=== PATIENT | female | born 1995 | race Two or more races ===

== ENCOUNTER → 2019-11-28 | Outpatient (CLI) | payer OTHER ==
--- NOTE | 2019-11-28 16:58 | RADIOLOGY REPORT (SQ) ---
EXAM DESCRIPTION: FOOT LEFT COMPLETE COMPLETED DATE/TIME: 11/28/2019 4:49 pm REASON FOR STUDY: OTHER SPECIFIED JOINT DISORDERS, UNSPECIFIED ANKLE AND FOOT M25.879 OTHER SPECIFI ED JOINT DISORDERS, UNSPECIFIED ANKLE A COMPARISON: None. NUMBER OF VIEWS: Three views. TECHNIQUE: AP, lateral and oblique without weight bearing radiographic images acquired of the left f oot. LIMITATIONS: None. FINDINGS: MINERALIZATION: Normal. BONES: No acute fracture or dislocation. No worrisome bone lesions. No significant osteophytes. JOINTS: No erosions. No jae-articular osteopenia. No chondrocalcinosis. SOFT TISSUES: No swelling. No calcifications. OTHER: No other significant finding. IMPRESSION: NEGATIVE STUDY OF THE LEFT FOOT. NO EXPLANATION FOR PAIN. TECHNICAL DOCUMENTATION: JOB ID: [id number] [employer]- All Rights Reserved Reading location - IP/workstation name: [email or web address]
== END ==
LOC: RAD 16:34
PROVIDERS: ATTEND Podiatrist Foot & Ankle Surgery
DX: M25.872 Other specified joint disorders, left ankle and foot (principal)

== ENCOUNTER → 2020-03-23 | Outpatient (CLI) | payer OTHER ==
--- NOTE | 2020-03-23 17:00 | RADIOLOGY REPORT (SQ) ---
EXAM DESCRIPTION: MRI LT LOWER EXTREMITY COMBO IMAGES COMPLETED DATE/TIME: 03/23/2020 11:42 am REASON FOR STUDY: M25.879 OTHER SPECIFIED JOINT DISORDERS, UNSPECIFIED ANKLE AND FOOT M25.879 OTHER SPECIFIED JOINT DISORDERS, UNSPECIFIED ANKLE A COMPARISON: None. TECHNIQUE: Multiplanar fat and fluid sensitive sequences precontrast including T1, T2 fat saturated or STIR. Post contrast T1 fat saturated sequences after IV gadolinium administration. CONTRAST TYPE AND DOSE: 15 mL Dotarem. RENAL FUNCTION: None required. The patient is less than 50 years old. LIMITATIONS: None. FINDINGS: MASS SIGNAL CHARACTERISTICS: LOCATION: Proximal intermetatarsal between the 1st and seconds digits extending dorsally along the do rsum of the foot. SIGNAL CHARACTERISTICS AND ENHANCEMENT PATTERN: High-signal intensity on T2. Low signal intensity on T1. No enhancement. MEASUREMENTS: 2.5 x 5 cm. MARROW SIGNAL IN ADJACENT BONES: Normal OTHER SIGNIFICANT BONE, JOINT OR SOFT TISSUE FINDINGS: No significant IMPRESSION: Large ganglion cyst extending from the inter metatarsals space 1 and 2 along the dorsum of the foot. TECHNICAL DOCUMENTATION: JOB ID: [id number] [employer]- All Rights Reserved Reading location - IP/workstation name: [email or web address]
== END ==
LOC: RAD 10:07
PROVIDERS: ATTEND Podiatrist Foot & Ankle Surgery
DX: M67.472 Ganglion, left ankle and foot (principal)
CPT/HCPCS: 73720; A9576